=== PATIENT | female | born 1945 | race Caucasian/White ===

== ENCOUNTER → 2017-04-21 | Outpatient (CLI) | payer MEDICARE | END | disposition home or self-care (01) | LOC: CVU 08:48 | DX: M79.671 Pain in right foot (principal); M79.672 Pain in left foot; Z72.0 Tobacco use; I83.93 Asymptomatic varicose veins of bilateral lower extremities | CPT/HCPCS: 93970 ==

== ENCOUNTER → 2017-08-31 | Outpatient (CLI) | payer MEDICARE | END | disposition home or self-care (01) | LOC: CFH 11:42 | PROVIDERS: ATTEND Nurse Practitioner | DX: Z12.31 Encounter for screening mammogram for malignant neoplasm of breast (principal); Z13.820 Encounter for screening for osteoporosis; N95.8 Other specified menopausal and perimenopausal disorders | CPT/HCPCS: 77080; G0202 ==

== ENCOUNTER 2018-09-11 10:52 | Inpatient (IN) | payer MEDICARE ==
[~2018-09-11] VITALS: Ht 162.6 cm; Wt 74.4 kg
[2018-09-11] MEDS ORDERED: ALBUTEROL/IPRATROPIUM 2.5MG/0.5MG, 3 ML ONE (11:44)
[2018-09-11 11:56] LABS: BASOPHILS # (AUTO) 0.01 x10^3/uL (0-0.1); BASOPHILS % (AUTO) 0 % (0-1); EOSINOPHILS # (AUTO) 0.02 x10^3/uL (0-0.4); EOSINOPHILS % (AUTO) 0 % (1-7); LYMPHOCYTES # (AUTO) 0.86 x10^3/uL (1-3.4); LYMPHOCYTES % (AUTO) 12 % (22-44); MD NO; MEAN CORPUSCULAR HEMOGLOBIN 31.5 pg (27.0-34.8); MEAN CORPUSCULAR HGB CONC 33.8 g/dL (32.4-35.8); MEAN CORPUSCULAR VOLUME 93.2 fL (80-100); MEAN PLATELET VOLUME 7.7 fL (7.4-10.4); MONOCYTES # (AUTO) 0.79 x10^3/uL (0.2-0.8); MONOCYTES % (AUTO) 11 % (2-9); NEUTROPHILS # (AUTO) 5.55 x10^3/uL (1.8-6.8); NEUTROPHILS % (AUTO) 77 % (42-75); PLATELET COUNT 205 x10^3/uL (130-400); RED BLOOD COUNT 4.83 x10^6/uL (3.82-5.3); RED CELL DISTRIBUTION WIDTH 13.4 % (9.6-15.2)
[2018-09-11] MEDS ORDERED: methylPREDNISolone SOD SUCC 125 MG/2 ML IVP ONE (12:00)
[2018-09-11 12:10] LABS: ALANINE AMINOTRANSFERASE 22 U/L (12-78); ALBUMIN 3.7 g/dL (3.4-5.0); ANION GAP 4 mmol/L (5-15); CALCIUM 8.2 mg/dL (8.5-10.1); CHLORIDE 99 mmol/L (98-107); CREATININE 0.73 mg/dL (0.55-1.02)
[2018-09-11 12:11] LABS: ALKALINE PHOSPHATASE 71 U/L (45-117); TOTAL PROTEIN 7.6 g/dL (6.4-8.2)
[2018-09-11] MEDS ORDERED: MAALOX/HYOSCYAMINE/LIDOCAINE 45 ML BTL ONE (12:18)
[2018-09-11] MEDS ORDERED: methylPREDNISolone SOD SUCC 125 MG/2 ML ONE (12:20)
--- NOTE | 2018-09-11 12:32 | NUR ---
FLU SWAB OBTAINED. POC UPDATED. PT AWARE OF POTENTIAL TO ADMIT.
[2018-09-11] MEDS ORDERED: BENZONATATE 100 MG CAPSULE PO ONE (13:00)
--- NOTE | 2018-09-11 13:00 | NUR ---
IV STARTED. PT MEDICATED PER NOV. 5 RIGHTS VERIFIED PRIOR. 3 P'S ADDRESSED. AWAITING RESULTS AND DISPO.
[2018-09-11 13:03] LABS: RAPID INFLUENZA A Negative (Negative); RAPID INFLUENZA B Negative (Negative)
[2018-09-11] MEDS ORDERED: ACETAMINOPHEN 500 MG TABLET PO ONE (13:30)
[2018-09-11] MEDS ORDERED: ATOR40TA78 PO (13:56)
[2018-09-11] MEDS ORDERED: LISI-167 PO (13:56)
[2018-09-11] MEDS ORDERED: FLUT12AE2 INH (13:57)
[2018-09-11] MEDS ORDERED: ALBU8.5H8 INH (13:57)
--- NOTE | 2018-09-11 14:00 | NUR ---
REPORT TO VARGHESE JACOME.
[2018-09-11] MEDS ORDERED: BENZONATATE 100 MG CAPSULE ONE (14:03)
[2018-09-11] MEDS ORDERED: ACETAMINOPHEN 500 MG TABLET ONE (14:04)
--- NOTE | 2018-09-11 14:11 | NUR ---
PT MEDICATED PER Nov.13 RIGHTS VERIFIED PRIOR. PT TO FLOOR VIA MITCH.
[2018-09-11 14:45] VITALS: BP 149/87
[2018-09-11] MEDS ORDERED: hydrALAzine 20 MG/ML, 1ML IVPush PRN (18:00)
[2018-09-11] MEDS ORDERED: ONDANSETRON 2MG/ML, 2ML IVPush PRN (18:00)
[2018-09-11 19:47] VITALS: BP 126/74
[2018-09-11] MEDS: CEFTRIAXONE PMX 2GM/50ML 50 ML IV SCH (19:57)
[2018-09-11] MEDS: methylPREDNISolone SOD SUCC 125 MG/2 ML IVPush SCH (19:57)
[2018-09-11] MEDS ORDERED: ACETAMINOPHEN 325 MG TABLET PO PRN (20:00)
[2018-09-11] MEDS ORDERED: ALBUTEROL SULFATE 2.5MG/0.5ML ONE (20:50)
[2018-09-11] MEDS: ENOXAPARIN 40 MG/0.4 ML SQ SCH (21:00)
[2018-09-11] MEDS ORDERED: ALBUTEROL SULFATE 2.5 MG/3 ML NPPB PRN (21:00)
[2018-09-11] MEDS: ATORVASTATIN 20 MG TABLET PO SCH (21:33)
[2018-09-11] MEDS: AZITHROMYCIN 500 MG in SODIUM CHLORIDE 0.9% 250 ML IV SCH (21:34)
[2018-09-12 00:21] VITALS: BP 136/81
[2018-09-12] MEDS: methylPREDNISolone SOD SUCC 125 MG/2 ML IVPush SCH ×4 (02:12→20:22)
[2018-09-12 06:47] VITALS: BP 147/84
[2018-09-12] MEDS: BUDESONIDE 0.5 MG/2 ML INHA NPPB SCH ×2 (07:39→19:58)
[2018-09-12] MEDS: ALBUTEROL SULFATE 2.5 MG/3 ML NPPB SCH ×2 (07:39→19:58)
[2018-09-12] MEDS: LISINOPRIL 10 MG TABLET PO SCH (08:44)
[2018-09-12 13:29] VITALS: BP 139/69
[2018-09-12] MEDS: ENOXAPARIN 40 MG/0.4 ML SQ SCH (19:29)
[2018-09-12 19:47] VITALS: BP 148/85
[2018-09-12] MEDS: ATORVASTATIN 20 MG TABLET PO SCH (20:22)
[2018-09-12] MEDS: CEFTRIAXONE PMX 2GM/50ML 50 ML IV SCH (20:22)
[2018-09-12] MEDS: AZITHROMYCIN 500 MG in SODIUM CHLORIDE 0.9% 250 ML IV SCH (22:18)
[2018-09-13 02:10] VITALS: BP 118/56
[2018-09-13] MEDS: methylPREDNISolone SOD SUCC 125 MG/2 ML IVPush SCH ×4 (02:29→21:08)
[2018-09-13] MEDS: BUDESONIDE 0.5 MG/2 ML INHA NPPB SCH ×3 (08:12→20:44)
[2018-09-13] MEDS: ALBUTEROL SULFATE 2.5 MG/3 ML NPPB SCH ×2 (08:12→20:44)
[2018-09-13 09:02] VITALS: BP 111/70
[2018-09-13] MEDS: LISINOPRIL 10 MG TABLET PO SCH (09:02)
[2018-09-13 11:12] VITALS: BP 111/72
[2018-09-13 15:39] VITALS: BP 127/71
[2018-09-13 20:08] VITALS: BP 144/79
[2018-09-13] MEDS: ENOXAPARIN 40 MG/0.4 ML SQ SCH (21:00)
[2018-09-13] MEDS: ATORVASTATIN 20 MG TABLET PO SCH (21:08)
[2018-09-13] MEDS: CEFTRIAXONE PMX 2GM/50ML 50 ML IV SCH (21:08)
[2018-09-13] MEDS: AZITHROMYCIN 500 MG in SODIUM CHLORIDE 0.9% 250 ML IV SCH (22:04)
[2018-09-14 02:02] VITALS: BP 128/78
[2018-09-14] MEDS: methylPREDNISolone SOD SUCC 125 MG/2 ML IVPush SCH ×2 (03:25→09:37)
[2018-09-14] MEDS: ALBUTEROL SULFATE 2.5 MG/3 ML NPPB SCH (06:49)
[2018-09-14] MEDS: BUDESONIDE 0.5 MG/2 ML INHA NPPB SCH (06:49)
[2018-09-14 07:37] VITALS: BP 142/76
[2018-09-14] MEDS: LISINOPRIL 10 MG TABLET PO SCH (09:00)
[2018-09-14] MEDS ORDERED: CEFD300C37 PO (11:08)
[2018-09-14] MEDS ORDERED: PRED10TA PO (11:08)
[2018-09-14] MEDS ORDERED: AZIT500T PO (11:08)
[2018-09-14] MEDS ORDERED: IPRA3AMP30 INH (11:32)
[2018-09-14] MEDS ORDERED: GUAI-110 PO (12:05)
[2018-09-14] MEDS ORDERED: TIOT18CA INH (12:05)
[2018-09-14] MEDS ORDERED: FLUT1DIS3 INH (12:05)
== END 2018-09-14 15:50 | disposition home or self-care (01) | DRG 871 ==
LOC: ED 11:14 → EDIP 13:18 → 3NE 13:38 → DCLOUNGE 09-14 15:05
PROVIDERS: ADMIT Internal Medicine; ATTEND Internal Medicine
DX: A41.9 Sepsis, unspecified organism (principal); J18.9 Pneumonia, unspecified organism; J96.01 Acute respiratory failure with hypoxia; J44.0 Chronic obstructive pulmonary disease with (acute) lower respiratory infection; J44.1 Chronic obstructive pulmonary disease with (acute) exacerbation; E78.5 Hyperlipidemia, unspecified; I10 Essential (primary) hypertension; Z80.3 Family history of malignant neoplasm of breast; Z87.891 Personal history of nicotine dependence; Z86.000 Personal history of in-situ neoplasm of breast; Z82.49 Family history of ischemic heart disease and other diseases of the circulatory system; Z88.8 Allergy status to other drugs, medicaments and biological substances
CPT/HCPCS: 36415; 71045; 80053; 83605; 84145; 85025; 87040; 87070; 87205; 87400; 93005; 94640; 96374; 99291; G0378; J0456; J0696; J7613; J7626; J2930; J7050

== ENCOUNTER → 2018-11-22 | Outpatient (CLI) | payer MEDICARE ==
[~2018-11-22] MED LIST: ALBU8.5H8 INH; ATOR40TA78 PO; AZIT500T PO; CEFD300C37 PO; FLUT12AE2 INH; FLUT1DIS3 INH; FURO40TA6 PO; GUAI-110 PO; IPRA3AMP30 INH; LISI-167 PO; OMNIPAQUE 350 MG/ML, 150 ML BOTTLE ONE; POTA10TA11 PO; PRED10TA PO; TIOT18CA INH
[2018-11-22 11:46] LABS: ANION GAP 7 mmol/L (5-15); CALCIUM 8.9 mg/dL (8.5-10.1); CHLORIDE 101 mmol/L (98-107); CREATININE 0.71 mg/dL (0.55-1.02)
== END | disposition home or self-care (01) ==
LOC: RAD 11:21
PROVIDERS: ATTEND Internal Medicine Cardiovascular Disease
DX: M48.56XA Collapsed vertebra, not elsewhere classified, lumbar region, initial encounter for fracture (principal); M47.814 Spondylosis without myelopathy or radiculopathy, thoracic region; M47.816 Spondylosis without myelopathy or radiculopathy, lumbar region; I65.23 Occlusion and stenosis of bilateral carotid arteries; I70.203 Unspecified atherosclerosis of native arteries of extremities, bilateral legs; I70.0 Atherosclerosis of aorta; K57.10 Diverticulosis of small intestine without perforation or abscess without bleeding; K57.30 Diverticulosis of large intestine without perforation or abscess without bleeding; I25.10 Atherosclerotic heart disease of native coronary artery without angina pectoris; J43.9 Emphysema, unspecified; E78.5 Hyperlipidemia, unspecified; I10 Essential (primary) hypertension; Z87.891 Personal history of nicotine dependence
CPT/HCPCS: 36415; 71275; 74174; 80048; 93880; 94060; 94726; 94729; Q9967

== ENCOUNTER 2018-12-18 06:05 | Inpatient (IN) | payer MEDICARE ==
[~2018-12-18] VITALS: Ht 162.6 cm; Wt 82.4 kg
[~2018-12-18 06:05] MED LIST changes: -OMNIPAQUE 350 MG/ML, 150 ML BOTTLE ONE
[2018-12-18] MEDS ORDERED: SODIUM CHLORIDE 0.9% 1,000 ML IV ONE (06:14)
[2018-12-18 06:23] VITALS: BP 123/70
[2018-12-18] MEDS ORDERED: ONDANSETRON 2MG/ML, 2ML IVPush PRN ×2 (06:30→09:00)
[2018-12-18] MEDS ORDERED: CHLORHEXIDINE 15 ML UDC MM PRN (06:30)
[2018-12-18] MEDS ORDERED: FENTANYL PF 100 MCG/2ML ONE ×2 (06:42→08:31)
[2018-12-18] MEDS ORDERED: PHENYLEPHRINE 10 MG/ML ONE (06:46)
[2018-12-18] MEDS ORDERED: PROPOFOL 10 MG/ML, 20ML ONE (06:48)
[2018-12-18] MEDS ORDERED: POTA10TA6 PO (06:51)
[2018-12-18] MEDS ORDERED: FURO-92 PO (06:51)
[2018-12-18] MEDS ORDERED: SUCCINYLCHOLINE 20 MG/ML, 10ML ONE (06:53)
[2018-12-18] MEDS ORDERED: ASPI-650 PO (06:54)
[2018-12-18] MEDS ORDERED: ROCURONIUM 10MG/ML,5ML ONE (06:55)
[2018-12-18] MEDS ORDERED: LIDOCAINE 2%, 6 ML JEL.PF.APP MM ONE (06:56)
[2018-12-18 07:06] LABS: BASOPHILS # (AUTO) 0.04 x10^3/uL (0-0.1); BASOPHILS % (AUTO) 1 % (0-1); EOSINOPHILS # (AUTO) 0.38 x10^3/uL (0-0.4); EOSINOPHILS % (AUTO) 7 % (1-7); LYMPHOCYTES # (AUTO) 1.78 x10^3/uL (1-3.4); LYMPHOCYTES % (AUTO) 31 % (22-44); MD NO; MEAN CORPUSCULAR HEMOGLOBIN 29.7 pg (27.0-34.8); MEAN CORPUSCULAR HGB CONC 32.6 g/dL (32.4-35.8); MEAN CORPUSCULAR VOLUME 91.1 fL (80-100); MEAN PLATELET VOLUME 7.7 fL (7.4-10.4); MONOCYTES # (AUTO) 0.63 x10^3/uL (0.2-0.8); MONOCYTES % (AUTO) 11 % (2-9); NEUTROPHILS # (AUTO) 2.89 x10^3/uL (1.8-6.8); NEUTROPHILS % (AUTO) 51 % (42-75); PLATELET COUNT 222 x10^3/uL (130-400); RED BLOOD COUNT 4.42 x10^6/uL (3.82-5.3)
[2018-12-18 07:17] LABS: ALANINE AMINOTRANSFERASE 20 U/L (12-78); ANION GAP 8 mmol/L (5-15); CALCIUM 8.8 mg/dL (8.5-10.1); CHLORIDE 103 mmol/L (98-107); CREATININE 0.74 mg/dL (0.55-1.02)
[2018-12-18 07:21] LABS: ALKALINE PHOSPHATASE 60 U/L (45-117); BILIRUBIN,TOTAL 0.6 mg/dL (0.2-1.0); TOTAL PROTEIN 6.7 g/dL (6.4-8.2)
[2018-12-18 07:24] LABS: INTERNATIONAL NORMALIZED RATIO 1.04 (0.93-1.1); PROTHROMBIN TIME 10.9 Seconds (9.6-11.5)
[2018-12-18] MEDS ORDERED: VERAPAMIL 2.5 MG/ML, 2ML ONE (07:50)
[2018-12-18] MEDS ORDERED: PROTAMINE SULFATE 10 MG/ML, 5ML ONE (07:50)
[2018-12-18] MEDS ORDERED: ACETAMINOPHEN 325 MG TABLET PO PRN (09:00)
[2018-12-18] MEDS ORDERED: HYDROcodone/APAP 5/325 TABLET PO PRN (09:00)
[2018-12-18] MEDS ORDERED: hydrALAzine 20 MG/ML, 1ML IVPush PRN (09:00)
[2018-12-18] MEDS ORDERED: LABETALOL 20 MG/4 ML IVPush PRN (09:00)
[2018-12-18] MEDS ORDERED: POTASSIUM CHLORIDE 10 MEQ TABLET.ER PO PRN (11:30)
[2018-12-18] MEDS ORDERED: FUROSEMIDE 40 MG TABLET PO PRN (11:30)
[2018-12-18] MEDS ORDERED: ALBUTEROL/IPRATROPIUM 2.5MG/0.5MG, 3 ML NEB PRN (11:30)
[2018-12-18 14:21] VITALS: BP 102/58
[2018-12-18 20:40] VITALS: BP 115/68
[2018-12-18] MEDS ORDERED: ATORVASTATIN 40 MG TABLET PO SCH (21:00)
[2018-12-18] MEDS ORDERED: CLOPIDOGREL 300 MG TABLET PO ONE (21:00)
[2018-12-19 00:43] VITALS: BP 109/68
[2018-12-19 05:47] LABS: BASOPHILS # (AUTO) 0.03 x10^3/uL (0-0.1); BASOPHILS % (AUTO) 0 % (0-1); EOSINOPHILS % (AUTO) 0 % (1-7); LYMPHOCYTES # (AUTO) 0.79 x10^3/uL (1-3.4); LYMPHOCYTES % (AUTO) 6 % (22-44); MD NO; MEAN CORPUSCULAR HEMOGLOBIN 31.1 pg (27.0-34.8); MEAN CORPUSCULAR HGB CONC 33.6 g/dL (32.4-35.8); MEAN CORPUSCULAR VOLUME 92.3 fL (80-100); MEAN PLATELET VOLUME 7.7 fL (7.4-10.4); MONOCYTES % (AUTO) 6 % (2-9); NEUTROPHILS # (AUTO) 10.83 x10^3/uL (1.8-6.8); NEUTROPHILS % (AUTO) 88 % (42-75); PLATELET COUNT 168 x10^3/uL (130-400); RED CELL DISTRIBUTION WIDTH 16.9 % (9.6-15.2)
[2018-12-19 07:20] VITALS: BP 124/69
[2018-12-19 08:47] LABS: ANION GAP 6 mmol/L (5-15); CALCIUM 8.8 mg/dL (8.5-10.1); CHLORIDE 104 mmol/L (98-107); CREATININE 0.62 mg/dL (0.55-1.02)
[2018-12-19] MEDS ORDERED: CLOPIDOGREL 75 MG TABLET PO SCH (09:00)
[2018-12-19] MEDS ORDERED: LISINOPRIL 10 MG TABLET PO SCH (09:00)
[2018-12-19] MEDS ORDERED: (Tiotropium Bromide** (Spiriva**) 18 MCG) HOMEMEDPO SCH (09:00)
[2018-12-19] MEDS ORDERED: ASPIRIN 81 MG TABLET EC PO SCH (09:00)
[2018-12-19] MEDS ORDERED: CLOP75TA PO (10:43)
[2018-12-19] MEDS ORDERED: ACET325T14 PO (10:43)
[2018-12-19] MEDS ORDERED: ASPI81TA45 PO (10:43)
== END 2018-12-19 12:35 | disposition home or self-care (01) | DRG 266 ==
LOC: ORIP 06:05 → ICU 09:05 → 5SO 13:40 → DCLOUNGE 12-19 12:18
PROVIDERS: ADMIT Internal Medicine Cardiovascular Disease; ATTEND Internal Medicine Cardiovascular Disease
PROC: B246ZZ4 Ultrasonography of Right and Left Heart, Transesophageal (ICD-10-PCS; 2018-12-18)
PROC: 03HY32Z Insertion of Monitoring Device into Upper Artery, Percutaneous Approach (ICD-10-PCS; 2018-12-18)
PROC: 02RF38Z Replacement of Aortic Valve with Zooplastic Tissue, Percutaneous Approach (ICD-10-PCS; principal; 2018-12-18 08:00)
DX: I35.0 Nonrheumatic aortic (valve) stenosis (principal); Z00.6 Encounter for examination for normal comparison and control in clinical research program; I50.33 Acute on chronic diastolic (congestive) heart failure; E78.5 Hyperlipidemia, unspecified; I11.0 Hypertensive heart disease with heart failure; I27.21 Secondary pulmonary arterial hypertension; I73.9 Peripheral vascular disease, unspecified; J44.9 Chronic obstructive pulmonary disease, unspecified; Z95.2 Presence of prosthetic heart valve; Z88.8 Allergy status to other drugs, medicaments and biological substances; Z87.891 Personal history of nicotine dependence
CPT/HCPCS: 33361; 36415; 80048; 80053; 83880; 85025; 85347; 85610; 85730; 86850; 86900; 86923; 87081; 93005; 93306; 93312; 93321; 93325; 93355; C1760; C1769; C1894; G0378; J2704; J2720; J3010; J0330; J0360; J2370; J3490; J7030; Q9967

== ENCOUNTER → 2019-01-15 | Outpatient (CLI) | payer MEDICARE ==
[~2019-01-15] MED LIST changes: +ACET325T14 PO; +ASPI-650 PO; +ASPI81TA45 PO; +CLOP75TA PO; +FURO-92 PO; +POTA10TA6 PO
== END | disposition home or self-care (01) ==
LOC: CVU 10:56
PROVIDERS: ATTEND Internal Medicine Cardiovascular Disease
DX: I08.1 Rheumatic disorders of both mitral and tricuspid valves (principal); J44.9 Chronic obstructive pulmonary disease, unspecified
CPT/HCPCS: 93306

== ENCOUNTER → 2019-03-18 | Outpatient (CLI) | payer MEDICARE | END | disposition home or self-care (01) | LOC: CVU 12:19 | PROVIDERS: ATTEND Internal Medicine Cardiovascular Disease | DX: I77.89 Other specified disorders of arteries and arterioles (principal); G45.2 Multiple and bilateral precerebral artery syndromes; I70.213 Atherosclerosis of native arteries of extremities with intermittent claudication, bilateral legs | CPT/HCPCS: 93922; 93925; 93978 ==

== ENCOUNTER 2019-03-26 20:08 | Inpatient (IN) | payer MEDICARE ==
[~2019-03-26] VITALS: Ht 162.6 cm; Wt 76.4 kg
[2019-03-29 11:58] VITALS: BP 114/54
== END 2019-03-29 14:02 | disposition home or self-care (01) | DRG 73 ==
LOC: ED 23:46 → EDIP 23:51 → ED 03-27 → 5SO 03-27 01:22 → DCLOUNGE 03-29 13:48
PROVIDERS: ADMIT Family Medicine; ATTEND Family Medicine
DX: G90.8 Other disorders of autonomic nervous system (principal); N17.0 Acute kidney failure with tubular necrosis; E87.1 Hypo-osmolality and hyponatremia; J96.10 Chronic respiratory failure, unspecified whether with hypoxia or hypercapnia; D62 Acute posthemorrhagic anemia; M25.062 Hemarthrosis, left knee; S70.12XA Contusion of left thigh, initial encounter; G90.9 Disorder of the autonomic nervous system, unspecified; S00.83XA Contusion of other part of head, initial encounter; E83.42 Hypomagnesemia; E78.5 Hyperlipidemia, unspecified; E86.0 Dehydration; F17.210 Nicotine dependence, cigarettes, uncomplicated; I10 Essential (primary) hypertension; I73.9 Peripheral vascular disease, unspecified; J44.9 Chronic obstructive pulmonary disease, unspecified; S00.81XA Abrasion of other part of head, initial encounter; W18.39XA Other fall on same level, initial encounter; Y93.89 Activity, other specified; W07.XXXA Fall from chair, initial encounter; W18.09XA Striking against other object with subsequent fall, initial encounter; Z86.000 Personal history of in-situ neoplasm of breast; Z95.2 Presence of prosthetic heart valve; Z80.3 Family history of malignant neoplasm of breast; S80.02XA Contusion of left knee, initial encounter
CPT/HCPCS: 36415; 70450; 72125; 80048; 82040; 82436; 82533; 83735; 83930; 83935; 84133; 84300; 84439; 84443; 84484; 85014; 85018; 85025; 85610; 85730; 86850; 86900; 86923; 93005; 94640; 96374; 96376; 99285; G0378; J7620; J7626; Q9967; J2270; J3475; J7030; P9016

== ENCOUNTER 2020-04-05 15:22 | Inpatient (IN) | payer MEDICARE ==
[~2020-04-05] VITALS: Ht 167.6 cm; Wt 79.2 kg
[~2020-04-05 15:22] MED LIST changes: +ACET325T26 PO; +ASCO500T9 PO; +ATOR20TA37 PO; +CHLO25TA PO; +CLOP75TA52 PO; +DAPT500V6 IV; +FERR-51 PO; +GUAI5SYR PO; +HYDR-3241 PO; +IPRA3AMP30 NEB; +LACT1CAP35 PO; +LINE600T15 PO; +NICO-487 TD; +POTASSIUM; +ZINC220C7 PO
[2020-04-05] MEDS ORDERED: PROPOFOL 100 ML IV PRN (15:36)
[2020-04-05] MEDS ORDERED: SODIUM CHLORIDE 0.9% 1,000 ML IV SCH (15:36)
[2020-04-05] MEDS ORDERED: DEXMEDETOMIDINE 200 MCG in SODIUM CHLORIDE 0.9% 48 ML IV PRN (15:36)
[2020-04-05] MEDS ORDERED: CODE BLUE RESPONSE XX ONE (15:52)
[2020-04-05] MEDS ORDERED: BISACODYL 10 MG SUPP PR PRN ×2 (16:00→17:00)
[2020-04-05] MEDS ORDERED: LABETALOL 5MG/ML, 20ML IVPush PRN (16:00)
[2020-04-05] MEDS ORDERED: OXYcodone IR 5MG TABLET PO PRN (16:00)
[2020-04-05] MEDS ORDERED: DOCUSATE 100 MG CAPSULE PO PRN (16:00)
[2020-04-05] MEDS ORDERED: ENALAPRILAT 1.25 MG/ML, 2ML IVPush PRN (16:00)
[2020-04-05] MEDS ORDERED: LORazepam 2 MG/ML, 1ML IVPush PRN (16:00)
[2020-04-05] MEDS ORDERED: ACETAMINOPHEN 325 MG TABLET PO PRN (16:00)
[2020-04-05] MEDS ORDERED: MIDAZOLAM 1 MG/ML, 2ML IVPush ONE (16:00)
[2020-04-05] MEDS ORDERED: ONDANSETRON 2MG/ML, 2ML IVPush PRN (16:00)
[2020-04-05] MEDS ORDERED: VECURONIUM 10 MG IVPush PRN (16:00)
[2020-04-05] MEDS ORDERED: morphine SULFATE 10 MG/ML, 1ML IVPush PRN (16:00)
[2020-04-05] MEDS ORDERED: POLYETHYLENE GLYCOL 17 GM PACKET PO PRN (16:00)
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
[2020-04-05 16:01] LABS: MEAN CORPUSCULAR HGB CONC 32.4 g/dL (32.4-35.8); MEAN CORPUSCULAR VOLUME 89.3 fL (80-100); MEAN PLATELET VOLUME 7.5 fL (7.4-10.4); PLATELET COUNT 452 x10^3/uL (130-400); RED BLOOD COUNT 3.25 x10^6/uL (3.82-5.3); RED CELL DISTRIBUTION WIDTH 20.8 % (9.6-15.2)
[2020-04-05 16:13] LABS: ALBUMIN 2.7 g/dL (3.4-5.0); ANION GAP 21 mmol/L (5-15); CALCIUM 7.5 mg/dL (8.5-10.1); CHLORIDE 104 mmol/L (98-107)
[2020-04-05 16:21] LABS: ALANINE AMINOTRANSFERASE 18 U/L (12-78); ALKALINE PHOSPHATASE 65 U/L (45-117); BILIRUBIN, DIRECT 0.2 mg/dL (0.1-0.2); BILIRUBIN,INDIRECT 0.4 mg/dL (0.0-2.0); BILIRUBIN,TOTAL 0.6 mg/dL (0.2-1.0); CREATININE 1.24 mg/dL (0.55-1.02); TOTAL PROTEIN 5.9 g/dL (6.4-8.2)
[2020-04-05 16:25] LABS: TROPONIN I 0.198 ng/mL (0.000-0.045)
--- NOTE | 2020-04-05 16:30 | NUR ---
PT TO CT. PT REMAINS WELL SEDATED, TOLERATING VENT WELL. RN AND RT TO CT WITH PT.
[2020-04-05 16:36] LABS: INTERNATIONAL NORMALIZED RATIO 1.07 (0.93-1.1); PROTHROMBIN TIME 11.4 Seconds (9.6-11.5)
[2020-04-05 16:56] LABS: MD YES
[2020-04-05 17:00] LABS: BAND#(MANUAL) 0.59 x10^3/uL; BANDS%(MANUAL) 3 % (0-7); EOS#(MANUAL) 0.39 x10^3/uL (0.0-0.4); EOS% (MANUAL) 2 % (1-7); LYMPH#(MANUAL) 5.32 x10^3/uL (1-3.4); LYMPHS% (MANUAL) 27 % (22-44); MONOS#(MANUAL) 1.18 x10^3/uL (0.3-2.7); MONOS% (MANUAL) 6 % (2-9); SEG#(MANUAL) 12.21 x10^3/uL (1.8-6.8); SEGS% (MANUAL) 62 % (42-75)
[2020-04-05] MEDS ORDERED: MIDAZOLAM HCL 50 MG in SODIUM CHLORIDE 0.9% 40 ML IV PRN (17:00)
[2020-04-05] MEDS ORDERED: PHARMACY MAY ADJ FOR RENAL FX MC SCH (17:00)
[2020-04-05] MEDS ORDERED: SENNA 176 MG/5 ML ORAL SOL NG PRN (17:00)
[2020-04-05] MEDS ORDERED: LACTULOSE 20 GM/30 ML UDC NG PRN (17:00)
[2020-04-05] MEDS ORDERED: SENNA/DOCUSATE TABLET NG PRN (17:00)
[2020-04-05] MEDS ORDERED: LIDOCAINE-MPF 1%, 2ML ENDO PRN (17:00)
[2020-04-05] MEDS ORDERED: FENTANYL PF 1,000 MCG in SODIUM CHLORIDE 0.9% 80 ML IV PRN (17:00)
[2020-04-05 17:01] LABS: <PLATELET ESTIMATE> INCREASED; <PLT MORPHOLOGY> NORMAL PLT MORPH; ANISOCYTOSIS 1+; OVALOCYTES 1+; POLYCHROMASIA 1+
--- NOTE | 2020-04-05 17:10 | NUR ---
PT RESTING IN BED, TOLERATING VENT WELL, REMAINS WELL SEDATED. PT ON MONITORS, VSS. ARCTIC SUN PADS PLACED ON PT. CENTAL LINE AND ART LINE PLACEMENT SET UP READY FOR ERMD. REPORT CALLED TO MONIKA KWONG, ROOM NOT READY. WILL CALL BACK WHEN CENTRAL LINES STARTED.
[2020-04-05] MEDS ORDERED: VANCOMYCIN PER PHARMACY MC PRN (17:30)
[2020-04-05 17:35] LABS: MICROSCOPIC NOT IND
--- NOTE | 2020-04-05 18:11 | NUR ---
ART LINE AND CENTRAL LINE PLACED BY DAVID JONES AT [facility] FOR ASSESSMENT. PT REMAINS WELL SEDATED, TOLERATING VENT WELL. CCU BED READY FOR PT, OK TO TO TRANSFER TO CCU.
--- NOTE | 2020-04-05 18:58 | NUR ---
PT ARCTIC SUN PADS PLACED, HYPOTHERMIA TX INITIATED WITH ACRTIC SUN PER ORDERS. PT REMAINS WELL SEDATED, TOLERATING VENT WELL. VSS. PT TRANSFERED TO FLOOR WITH ALL BELONGINGS, FAMILY AWARE.
[2020-04-05] MEDS ORDERED: PHARMACOKINETIC CONSULTATION MC ONE (19:00)
[2020-04-05] MEDS ORDERED: PHARMACOKINETIC MONITORING MC PRN (19:00)
[2020-04-05] MEDS: ALBUTEROL/IPRATROPIUM 2.5MG/0.5MG, 3 ML INLINE SCH ×2 (19:00→23:00)
[2020-04-05] MEDS ORDERED: SODIUM PHOSPHATE 20 MMOL in SODIUM CHLORIDE 0.9% 250 ML IVPB PRN (19:17)
[2020-04-05] MEDS: SODIUM BICARBONATE IV SCH (19:50)
[2020-04-05] MEDS: DEXTROSE 5% IV SCH (19:50)
[2020-04-05] MEDS: POTASSIUM CHLORIDE IV SCH (19:50)
[2020-04-05] MEDS: VANCOMYCIN 1,400 MG in SODIUM CHLORIDE 0.9% 250 ML IV SCH (20:00)
[2020-04-05] MEDS: PIPERACILLIN/TAZO/PMX 3.375GM 50 ML IV SCH ×2 (20:00→23:35)
[2020-04-05] MEDS: KSCALE TO 4.0 IV SCH (20:00)
[2020-04-05] MEDS: FENTANYL PF 1,000 MCG in SODIUM CHLORIDE 0.9% 80 ML IV PRN (20:24)
[2020-04-05] MEDS ORDERED: CALCIUM CHLORIDE 13.6 MEQ in SODIUM CHLORIDE 0.9% 100 ML IVPB PRN (20:30)
[2020-04-05] MEDS: ENOXAPARIN 40 MG/0.4 ML SQ SCH (20:35)
[2020-04-05] MEDS: FAMOTIDINE 20 MG/2 ML IVPush SCH (20:35)
[2020-04-05] MEDS: BUSPIRONE 10 MG TABLET NG SCH (20:35)
[2020-04-05] MEDS: ARTIFICIAL TEARS OINT 3.5 GM EACHEYE SCH (20:49)
[2020-04-05] MEDS: MAGNESIUM SULFATE/D5W 100 ML IVPB SCH (20:58)
[2020-04-05] MEDS ORDERED: POTASSIUM CHLORIDE PMX 100 ML IV ONE (21:00)
[2020-04-05] MEDS: BUDESONIDE 0.5 MG/2 ML INHA INLINE SCH (21:00)
[2020-04-05] MEDS: PROPOFOL 100 ML IV PRN (21:31)
[2020-04-05] MEDS: NOREPINEPHRINE 8 MG in SODIUM CHLORIDE 0.9% 242 ML IV PRN (21:57)
[2020-04-06] MEDS: MAGNESIUM SULFATE/D5W 100 ML IVPB SCH ×6 (00:42→20:00)
[2020-04-06 00:45] VITALS: BP 140/61
[2020-04-06] MEDS ORDERED: POTASSIUM CHLORIDE PMX 100 ML IV ONE ×4 (01:00→21:30)
[2020-04-06] MEDS ORDERED: REGULAR INSULIN 100 UNITS in SODIUM CHLORIDE 0.9% 99 ML IV PRN (02:30)
[2020-04-06] MEDS: ALBUTEROL/IPRATROPIUM 2.5MG/0.5MG, 3 ML INLINE SCH ×6 (03:00→23:00)
[2020-04-06] MEDS: PROPOFOL 100 ML IV PRN ×4 (03:02→22:46)
[2020-04-06] MEDS: BUSPIRONE 10 MG TABLET NG SCH ×3 (03:44→19:45)
[2020-04-06] MEDS: ARTIFICIAL TEARS OINT 3.5 GM EACHEYE SCH ×3 (03:44→19:45)
[2020-04-06 04:00] VITALS: BP 145/46
[2020-04-06] MEDS: KSCALE TO 4.0 IV SCH ×6 (04:00→20:00)
[2020-04-06 04:06] LABS: MEAN CORPUSCULAR HEMOGLOBIN 28.6 pg (27.0-34.8); MEAN CORPUSCULAR HGB CONC 32.4 g/dL (32.4-35.8); MEAN CORPUSCULAR VOLUME 88.4 fL (80-100); MEAN PLATELET VOLUME 6.4 fL (7.4-10.4); PLATELET COUNT 461 x10^3/uL (130-400); RED BLOOD COUNT 3.45 x10^6/uL (3.82-5.3); RED CELL DISTRIBUTION WIDTH 21.5 % (9.6-15.2)
[2020-04-06 04:07] LABS: MD YES
[2020-04-06 04:18] LABS: ALANINE AMINOTRANSFERASE 29 U/L (12-78); ALBUMIN 2.9 g/dL (3.4-5.0); ANION GAP 10 mmol/L (5-15); CALCIUM 7.5 mg/dL (8.5-10.1); CHLORIDE 102 mmol/L (98-107); CREATININE 0.79 mg/dL (0.55-1.02)
[2020-04-06 04:23] LABS: ALKALINE PHOSPHATASE 55 U/L (45-117); BILIRUBIN,TOTAL 1.1 mg/dL (0.2-1.0); TOTAL PROTEIN 6.2 g/dL (6.4-8.2)
[2020-04-06 04:24] LABS: ANISOCYTOSIS 1+; BAND#(MANUAL) 1.24 x10^3/uL; BANDS%(MANUAL) 5 % (0-7); LYMPH#(MANUAL) 1.24 x10^3/uL (1-3.4); LYMPHS% (MANUAL) 5 % (22-44); MONOS#(MANUAL) 0.74 x10^3/uL (0.3-2.7); MONOS% (MANUAL) 3 % (2-9); POLYCHROMASIA 1+; SEG#(MANUAL) 21.49 x10^3/uL (1.8-6.8); SEGS% (MANUAL) 87 % (42-75)
[2020-04-06 04:25] LABS: <PLATELET ESTIMATE> INCREASED; <PLT MORPHOLOGY> NORMAL PLT MORPH; OVALOCYTES 1+; PMNS WITH VACUOLES 1+
[2020-04-06] MEDS: FENTANYL PF 1,000 MCG in SODIUM CHLORIDE 0.9% 80 ML IV PRN ×3 (05:10→22:45)
[2020-04-06] MEDS: POTASSIUM CHLORIDE IV SCH (06:10)
[2020-04-06] MEDS: SODIUM BICARBONATE IV SCH (06:10)
[2020-04-06] MEDS: PIPERACILLIN/TAZO/PMX 3.375GM 50 ML IV SCH ×4 (06:10→23:54)
[2020-04-06] MEDS: DEXTROSE 5% IV SCH (06:10)
[2020-04-06] MEDS: BUDESONIDE 0.5 MG/2 ML INHA INLINE SCH ×2 (06:30→21:00)
[2020-04-06] MEDS: NOREPINEPHRINE 8 MG in SODIUM CHLORIDE 0.9% 242 ML IV PRN ×3 (07:51→21:24)
[2020-04-06] MEDS: SODIUM CHLORIDE 0.9% 1,000 ML IV SCH ×2 (08:14→22:49)
[2020-04-06] MEDS: FAMOTIDINE 20 MG/2 ML IVPush SCH (08:40)
[2020-04-06] MEDS: SENNA/DOCUSATE TABLET PO SCH (08:40)
[2020-04-06] MEDS ORDERED: DEXTROSE 50%, 50ML SYRINGE ONE (11:08)
[2020-04-06] MEDS ORDERED: DEXTROSE 50%, 50ML SYRINGE IVPush PRN (11:30)
[2020-04-06] MEDS ORDERED: GLUCAGON 1 MG IM PRN (11:30)
[2020-04-06] MEDS ORDERED: POTASSIUM CHLORIDE PMX 100 ML IVPB ONE (18:00)
[2020-04-06] MEDS: ENOXAPARIN 40 MG/0.4 ML SQ SCH (20:13)
[2020-04-06] MEDS: VANCOMYCIN 1,400 MG in SODIUM CHLORIDE 0.9% 250 ML IV SCH (20:13)
[2020-04-07] MEDS ORDERED: POTASSIUM CHLORIDE PMX 100 ML IV ONE (00:30)
[2020-04-07] MEDS: NOREPINEPHRINE 8 MG in SODIUM CHLORIDE 0.9% 242 ML IV PRN ×6 (02:51→18:26)
[2020-04-07] MEDS: ALBUTEROL/IPRATROPIUM 2.5MG/0.5MG, 3 ML INLINE SCH ×6 (03:00→22:19)
[2020-04-07 04:00] VITALS: BP 160/55
[2020-04-07] MEDS: MAGNESIUM SULFATE/D5W 100 ML IVPB SCH ×6 (04:00→20:00)
[2020-04-07] MEDS: KSCALE TO 4.0 IV SCH ×6 (04:00→20:00)
[2020-04-07] MEDS: ARTIFICIAL TEARS OINT 3.5 GM EACHEYE SCH ×3 (04:06→20:54)
[2020-04-07] MEDS: BUSPIRONE 10 MG TABLET NG SCH ×3 (04:06→20:54)
[2020-04-07 04:59] LABS: MEAN CORPUSCULAR HEMOGLOBIN 28.3 pg (27.0-34.8); MEAN CORPUSCULAR HGB CONC 31.3 g/dL (32.4-35.8); MEAN CORPUSCULAR VOLUME 90.6 fL (80-100); MEAN PLATELET VOLUME 6.6 fL (7.4-10.4); PLATELET COUNT 382 x10^3/uL (130-400); RED BLOOD COUNT 3.26 x10^6/uL (3.82-5.3); RED CELL DISTRIBUTION WIDTH 21.3 % (9.6-15.2)
[2020-04-07] MEDS: PIPERACILLIN/TAZO/PMX 3.375GM 50 ML IV SCH ×4 (05:28→23:35)
[2020-04-07] MEDS: FENTANYL PF 1,000 MCG in SODIUM CHLORIDE 0.9% 80 ML IV PRN ×3 (05:32→20:54)
[2020-04-07 05:50] LABS: BASOPHILS # (AUTO) 0.06 x10^3/uL (0-0.1); BASOPHILS % (AUTO) 0 % (0-1); EOSINOPHILS # (AUTO) 0.54 x10^3/uL (0-0.4); EOSINOPHILS % (AUTO) 4 % (1-7); LYMPHOCYTES # (AUTO) 1.21 x10^3/uL (1-3.4); LYMPHOCYTES % (AUTO) 8 % (22-44); MD SCAN; MONOCYTES # (AUTO) 0.56 x10^3/uL (0.2-0.8); MONOCYTES % (AUTO) 4 % (2-9); NEUTROPHILS # (AUTO) 12.66 x10^3/uL (1.8-6.8); NEUTROPHILS % (AUTO) 84 % (42-75)
[2020-04-07] MEDS: PROPOFOL 100 ML IV PRN ×2 (06:17→11:09)
[2020-04-07] MEDS: BUDESONIDE 0.5 MG/2 ML INHA INLINE SCH ×2 (06:40→18:56)
[2020-04-07 08:41] LABS: ANION GAP 10 mmol/L (5-15); CALCIUM 7.8 mg/dL (8.5-10.1); CHLORIDE 107 mmol/L (98-107)
[2020-04-07] MEDS: SENNA/DOCUSATE TABLET PO SCH (08:59)
[2020-04-07] MEDS: FAMOTIDINE 20 MG/2 ML IVPush SCH (09:27)
[2020-04-07] MEDS: SODIUM CHLORIDE 0.9% 1,000 ML IV SCH ×2 (11:13→23:36)
[2020-04-07 12:11] LABS: FIO2 40 %
[2020-04-07] MEDS: ENOXAPARIN 40 MG/0.4 ML SQ SCH (20:54)
[2020-04-08] MEDS: NOREPINEPHRINE 8 MG in SODIUM CHLORIDE 0.9% 242 ML IV PRN ×2 (00:32→19:35)
[2020-04-08] MEDS: ALBUTEROL/IPRATROPIUM 2.5MG/0.5MG, 3 ML INLINE SCH ×6 (02:40→22:23)
[2020-04-08 04:00] VITALS: BP 119/49
[2020-04-08] MEDS: BUSPIRONE 10 MG TABLET NG SCH ×2 (04:34→11:30)
[2020-04-08] MEDS: ARTIFICIAL TEARS OINT 3.5 GM EACHEYE SCH ×2 (04:34→12:00)
[2020-04-08 05:12] LABS: MEAN CORPUSCULAR HEMOGLOBIN 29.4 pg (27.0-34.8); MEAN CORPUSCULAR HGB CONC 33.2 g/dL (32.4-35.8); MEAN CORPUSCULAR VOLUME 88.5 fL (80-100); MEAN PLATELET VOLUME 6.7 fL (7.4-10.4); PLATELET COUNT 255 x10^3/uL (130-400); RED BLOOD COUNT 2.71 x10^6/uL (3.82-5.3); RED CELL DISTRIBUTION WIDTH 22.1 % (9.6-15.2)
[2020-04-08 05:56] LABS: BASOPHILS # (AUTO) 0.08 x10^3/uL (0-0.1); BASOPHILS % (AUTO) 1 % (0-1); EOSINOPHILS # (AUTO) 0.09 x10^3/uL (0-0.4); EOSINOPHILS % (AUTO) 1 % (1-7); LYMPHOCYTES # (AUTO) 0.81 x10^3/uL (1-3.4); LYMPHOCYTES % (AUTO) 6 % (22-44); MD SCAN; MONOCYTES # (AUTO) 0.57 x10^3/uL (0.2-0.8); MONOCYTES % (AUTO) 4 % (2-9); NEUTROPHILS % (AUTO) 88 % (42-75)
[2020-04-08] MEDS: PIPERACILLIN/TAZO/PMX 3.375GM 50 ML IV SCH ×3 (06:06→17:39)
[2020-04-08] MEDS: FENTANYL PF 1,000 MCG in SODIUM CHLORIDE 0.9% 80 ML IV PRN (06:07)
[2020-04-08 06:20] LABS: ANION GAP 11 mmol/L (5-15); CALCIUM 7.2 mg/dL (8.5-10.1); CHLORIDE 111 mmol/L (98-107)
[2020-04-08 06:22] LABS: CREATININE 1.82 mg/dL (0.55-1.02)
[2020-04-08] MEDS: BUDESONIDE 0.5 MG/2 ML INHA INLINE SCH ×2 (06:34→18:47)
[2020-04-08] MEDS: SENNA/DOCUSATE TABLET PO SCH (07:41)
[2020-04-08] MEDS ORDERED: SODIUM CHLORIDE 0.9% 1,000 ML IV SCH (08:30)
[2020-04-08] MEDS: FAMOTIDINE 20 MG/2 ML IVPush SCH (09:38)
[2020-04-08] MEDS ORDERED: ENOXAPARIN 30 MG/0.3 ML SQ SCH (21:00)
[2020-04-09] MEDS: PIPERACILLIN/TAZO/PMX 3.375GM 50 ML IV SCH ×3 (00:19→12:20)
[2020-04-09] MEDS: ALBUTEROL/IPRATROPIUM 2.5MG/0.5MG, 3 ML INLINE SCH ×6 (03:25→22:36)
[2020-04-09 04:00] VITALS: BP 100/47
[2020-04-09 05:41] LABS: MEAN CORPUSCULAR HGB CONC 33.2 g/dL (32.4-35.8); MEAN CORPUSCULAR VOLUME 87.5 fL (80-100); MEAN PLATELET VOLUME 6.7 fL (7.4-10.4); PLATELET COUNT 241 x10^3/uL (130-400); RED BLOOD COUNT 2.53 x10^6/uL (3.82-5.3); RED CELL DISTRIBUTION WIDTH 21.8 % (9.6-15.2)
[2020-04-09 06:24] LABS: BASOPHILS # (AUTO) 0.08 x10^3/uL (0-0.1); BASOPHILS % (AUTO) 1 % (0-1); EOSINOPHILS # (AUTO) 0.02 x10^3/uL (0-0.4); EOSINOPHILS % (AUTO) 0 % (1-7); LYMPHOCYTES # (AUTO) 0.55 x10^3/uL (1-3.4); LYMPHOCYTES % (AUTO) 6 % (22-44); MD SCAN; MONOCYTES # (AUTO) 0.48 x10^3/uL (0.2-0.8); MONOCYTES % (AUTO) 5 % (2-9); NEUTROPHILS # (AUTO) 7.76 x10^3/uL (1.8-6.8); NEUTROPHILS % (AUTO) 87 % (42-75)
[2020-04-09] MEDS: BUDESONIDE 0.5 MG/2 ML INHA INLINE SCH ×2 (06:45→18:44)
[2020-04-09 07:20] LABS: ANION GAP 15 mmol/L (5-15); CALCIUM 7.9 mg/dL (8.5-10.1); CHLORIDE 111 mmol/L (98-107); CREATININE 1.93 mg/dL (0.55-1.02)
[2020-04-09] MEDS ORDERED: ENOXAPARIN 40 MG/0.4 ML SQ SCH (08:00)
[2020-04-09] MEDS: SODIUM BICARBONATE 8.4% 150 MEQ in DEXTROSE 5% 1,000 ML IV SCH ×2 (08:02→20:25)
[2020-04-09] MEDS: FAMOTIDINE 20 MG/2 ML IVPush SCH (08:54)
[2020-04-09] MEDS ORDERED: LACTATED RINGERS 1,000 ML IVBOLUS ONE (17:30)
[2020-04-09] MEDS: PROPOFOL 100 ML IV PRN (17:56)
[2020-04-09] MEDS: PIPERACILLIN/TAZO(ZOSYN) 2.25 GM in NS 50 ML IVPB SCH (20:25)
[2020-04-10] MEDS: PROPOFOL 100 ML IV PRN ×4 (01:52→23:28)
[2020-04-10] MEDS: PIPERACILLIN/TAZO(ZOSYN) 2.25 GM in NS 50 ML IVPB SCH ×4 (01:53→19:41)
[2020-04-10] MEDS: ALBUTEROL/IPRATROPIUM 2.5MG/0.5MG, 3 ML INLINE SCH ×6 (02:44→22:12)
[2020-04-10 05:14] LABS: MEAN CORPUSCULAR HEMOGLOBIN 29.1 pg (27.0-34.8); MEAN CORPUSCULAR HGB CONC 33.2 g/dL (32.4-35.8); MEAN CORPUSCULAR VOLUME 87.5 fL (80-100); MEAN PLATELET VOLUME 6.9 fL (7.4-10.4); PLATELET COUNT 192 x10^3/uL (130-400); RED BLOOD COUNT 2.26 x10^6/uL (3.82-5.3); RED CELL DISTRIBUTION WIDTH 21.1 % (9.6-15.2)
[2020-04-10 05:23] VITALS: BP 110/52
[2020-04-10 05:52] LABS: BASOPHILS # (AUTO) 0.05 x10^3/uL (0-0.1); BASOPHILS % (AUTO) 1 % (0-1); EOSINOPHILS # (AUTO) 0.02 x10^3/uL (0-0.4); EOSINOPHILS % (AUTO) 0 % (1-7); LYMPHOCYTES # (AUTO) 0.79 x10^3/uL (1-3.4); LYMPHOCYTES % (AUTO) 12 % (22-44); MD SCAN; MONOCYTES # (AUTO) 0.67 x10^3/uL (0.2-0.8); MONOCYTES % (AUTO) 10 % (2-9); NEUTROPHILS # (AUTO) 4.85 x10^3/uL (1.8-6.8); NEUTROPHILS % (AUTO) 76 % (42-75)
[2020-04-10] MEDS: BUDESONIDE 0.5 MG/2 ML INHA INLINE SCH ×2 (06:50→18:40)
[2020-04-10] MEDS: FAMOTIDINE 20 MG/2 ML IVPush SCH (07:59)
[2020-04-10] MEDS: ENOXAPARIN 30 MG/0.3 ML SQ SCH (07:59)
[2020-04-10] MEDS: SODIUM BICARBONATE 8.4% 150 MEQ in DEXTROSE 5% 1,000 ML IV SCH ×2 (10:12→21:07)
[2020-04-11] MEDS: PIPERACILLIN/TAZO/PMX 2.25GM 50 ML IVPB SCH ×2 (01:39→08:32)
[2020-04-11] MEDS: ALBUTEROL/IPRATROPIUM 2.5MG/0.5MG, 3 ML INLINE SCH ×2 (02:06→06:55)
[2020-04-11 04:00] VITALS: BP 110/62
[2020-04-11] MEDS: PROPOFOL 100 ML IV PRN (08:33)
[2020-04-11] MEDS: ENOXAPARIN 30 MG/0.3 ML SQ SCH (08:33)
[2020-04-11] MEDS ORDERED: LORazepam 2 MG/ML, 1ML IV ONE (10:00)
[2020-04-11] MEDS ORDERED: ONDANSETRON 2MG/ML, 2ML IVPush PRN (10:00)
[2020-04-11] MEDS ORDERED: MORPHINE SULFATE 4 MG/ML, 1ML IV ONE (10:00)
[2020-04-11] MEDS ORDERED: SCOPOLAMINE 1MG PATCH TD PRN (10:00)
[2020-04-11] MEDS: MORPHINE SULFATE 4 MG/ML, 1ML IVPush PRN ×3 (10:59→15:07)
[2020-04-11] MEDS: LORazepam 2 MG/ML, 1ML IVPush PRN ×2 (13:59→15:07)
== END 2020-04-11 16:59 | disposition expired | DRG 308 ==
LOC: ED 16:24 → EDIP 16:35 → CCU 18:27 → 4NW 04-11 13:30
PROVIDERS: ADMIT Internal Medicine; ATTEND Hospitalist
PROC: 5A1955Z Respiratory Ventilation, Greater than 96 Consecutive Hours (ICD-10-PCS; principal; 2020-04-05)
PROC: 02HV33Z Insertion of Infusion Device into Superior Vena Cava, Percutaneous Approach (ICD-10-PCS; 2020-04-05)
PROC: 0BH18EZ Insertion of Endotracheal Airway into Trachea, Via Natural or Artificial Opening Endoscopic (ICD-10-PCS; 2020-04-05)
DX: I49.01 Ventricular fibrillation (principal); J96.21 Acute and chronic respiratory failure with hypoxia; N17.0 Acute kidney failure with tubular necrosis; E43 Unspecified severe protein-calorie malnutrition; J18.9 Pneumonia, unspecified organism; I38 Endocarditis, valve unspecified; Z99.11 Dependence on respirator [ventilator] status; J44.0 Chronic obstructive pulmonary disease with (acute) lower respiratory infection; E87.2 Acidosis; D62 Acute posthemorrhagic anemia; I46.2 Cardiac arrest due to underlying cardiac condition; D64.9 Anemia, unspecified; E78.5 Hyperlipidemia, unspecified; I50.9 Heart failure, unspecified; I11.0 Hypertensive heart disease with heart failure; I73.9 Peripheral vascular disease, unspecified; D05.12 Intraductal carcinoma in situ of left breast; K57.90 Diverticulosis of intestine, part unspecified, without perforation or abscess without bleeding; Z85.3 Personal history of malignant neoplasm of breast; Z90.710 Acquired absence of both cervix and uterus; Z87.891 Personal history of nicotine dependence; Z79.899 Other long term (current) drug therapy; Z88.6 Allergy status to analgesic agent; Z88.8 Allergy status to other drugs, medicaments and biological substances; Z68.28 Body mass index [BMI] 28.0-28.9, adult
CPT/HCPCS: 36415; 36556; 36600; 70450; 70551; 71045; 80048; 80053; 80076; 81003; 82040; 82330; 82803; 82962; 83735; 83880; 84100; 84132; 84443; 84478; 84484; 85025; 85610; 85730; 87040; 87070; 87081; 87205; 92950; 93005; 93306; 94002; 94003; 94640; 96374; G0378; J1650; J1815; J2543; J2704; J3010; J3370; J3480; J7070; J7626; J2060; J2270; J3490; J7030; J7050; J7120